=== PATIENT | male | born 1940 | race Caucasian/White ===

== ENCOUNTER 2021-05-18 06:26 | Day surgery (SDC) | payer MEDICARE ==
[2021-05-18] MEDS ORDERED: Bupivacaine 0.5% 50 ML MDV ONE (06:54)
[2021-05-18] MEDS ORDERED: Lidocaine 1% with EPINEPHrine 1:100,000 50 ML MDV ONE (06:55)
[2021-05-18] MEDS ORDERED: Meropenem 500 MG SDV ONE (06:55)
[2021-05-18] MEDS ORDERED: Acetaminophen 500 MG Tab PO ONE (07:00)
[2021-05-18] MEDS ORDERED: fentaNYL 250 MCG/5 ML SDV ONE (07:09)
[2021-05-18] MEDS ORDERED: Rocuronium 50 MG/5 ML Vial ONE (07:10)
[2021-05-18] MEDS ORDERED: Neostigmine Methylsulfate 1 MG/ML 5 ML Syringe ONE (07:10)
[2021-05-18] MEDS ORDERED: Ondansetron 4 MG/2 ML SDV ONE (07:10)
[2021-05-18] MEDS ORDERED: Dexamethasone 4 MG/ML SDV ONE (07:10)
[2021-05-18] MEDS: Dextrose 5%-Lactated Ringers 1,000 ML IV SCH ×2 (07:10→18:56)
[2021-05-18] MEDS ORDERED: Succinylcholine 200 MG/10 ML MDV ONE (07:10)
[2021-05-18] MEDS ORDERED: Glycopyrrolate 0.2 MG/ML 5 ML MDV ONE (07:10)
[2021-05-18] MEDS ORDERED: Propofol 200 MG/20 ML SDV ONE (07:10)
[2021-05-18] MEDS ORDERED: cefOXitin 2 GM in Sodium Chloride 0.9% 50 ML IV ONE (08:00)
[2021-05-18] MEDS ORDERED: Lidocaine 2% Jelly 10 ML Urojet ONE (08:27)
[2021-05-18] MEDS ORDERED: Lactated Ringers 1,000 ML ONE (09:26)
[2021-05-18] MEDS ORDERED: oxyCODONE 5 MG Tab PO PRN (11:27)
[2021-05-18] MEDS ORDERED: Ondansetron 4 MG/2 ML SDV IVPUSH PRN (11:30)
[2021-05-18] MEDS: ceFAZolin 2 GM in Premix Bag 1 BAG IV SCH ×2 (13:42→22:31)
[2021-05-18] MEDS ORDERED: Doxazosin 4 MG Tab PO SCH (21:00)
[2021-05-19] MEDS: Dextrose 5%-Lactated Ringers 1,000 ML IV SCH (04:58)
[2021-05-19] MEDS: ceFAZolin 2 GM in Premix Bag 1 BAG IV SCH (05:08)
[2021-05-19] MEDS ORDERED: Acetaminophen/HYDROcodone 325-5 MG Tab PO PRN (06:50)
[2021-05-19] MEDS ORDERED: Magnesium Hydroxide 400 MG/5 ML Susp 30 ML Cup PO PRN ×2 (06:51→09:18)
[2021-05-19] MEDS ORDERED: Lisinopril 20 MG Tab PO SCH (09:00)
[2021-05-19] MEDS ORDERED: Metoprolol Succinate 50 MG Tab.ER PO SCH (09:00)
[2021-05-19] MEDS ORDERED: Hydrochlorothiazide 25 MG Tab PO SCH (09:00)
[2021-05-19] MEDS ORDERED: amLODIPine 5 MG Tab PO SCH (09:00)
--- NOTE | 2021-05-20 08:46 | DISCH ---
ADMISSION DIAGNOSIS: Right inguinal hernia. DISCHARGE DIAGNOSES: Right inguinal exploration. 1. Repair of incarcerated incisional hernia with mesh (mesh plug). 2. Repair of incarcerated inguinal hernia with mesh (extra long plug). 3. Excision of intraperitoneal nodule extending into inguinal canal. 4. Excision of portion of right ilioinguinal nerve. POSTOPERATIVE DIAGNOSES: 1. Incarcerated incisional hernia. 2. Incarcerated indirect right inguinal hernia. 3. Right ilioinguinal nerve scar entrapment. 4. Prolapsed intraperitoneal mass into scrotum (7 cm). Date of procedure: 05/18/2021. HISTORY: Vinicius Hong had incarcerated incisional hernia of right inguinal area. After preoperative evaluation, discussion of possible risks and possible complications, he wished to proceed with surgical procedure. HOSPITAL COURSE: Vinicius had his surgery on 05/18/2021. He had no complications. He was up ambulating. Pain was controlled. His oral intake and output adequate. He did not have a bowel movement, but was passing flatus, and vital signs were stable. He was able to be discharged to home. PHYSICAL EXAMINATION: GENERAL: Vinicius Hong is a pleasant 80-year-old male. He is alert and orientated. VITAL SIGNS: Height 5 feet 8 inches, weight is 191 pounds, BMI is 29. TPR is 97.3, 70, 16. Blood pressure 145/70. HEENT: Negative. NECK: Supple. HEART: Regular rate and rhythm. LUNGS: Clear. ABDOMEN: Has his scrotal support on and abdominal binder is intact. EXTREMITIES: Without peripheral edema. DISPOSITION: Discharged to home. CONDITION: Stable and improving. FOLLOWUP APPOINTMENT: With Randell Abad MD, on 05/23/2021 at 10:15 a.m. HOME PRESCRIPTION: Hydrocodone-acetaminophen 5/325 mg one every 4 hours p.r.n. pain, #12; milk of magnesia 30 mL, take one daily p.r.n. constipation, two were sent home with patient. He is to hold Pradaxa 150 mg, which he takes oral daily until 05/21/2021. He may resume all his other medications including lisinopril 40 mg daily; hydrochlorothiazide 25 mg daily; amlodipine, Norvasc 10 mg daily; Zocor 20 mg daily; multivitamin 1 tablet daily; metoprolol tartrate, Lopressor 100 mg p.o. daily; Cardura 2 mg p.o. daily. DIET: Usual diet as tolerated. Drink 8 to 10 glasses of water a day. ACTIVITY: No lifting greater than 10 pounds for 6 weeks. Walk short distances in your home about 6 times a day if tolerated. On driving, do not drive for 1 week if possible. May shower, keep operative site clean and dry. Wear scrotal support and abdominal binder for 2 weeks. Notify provider if any fever, increased pain, swelling, redness, drainage, nausea, vomiting. Use incentive spirometer 10 times every hour while awake. /[id number]
--- NOTE | 2021-05-21 13:49 | OR ---
DATE OF PROCEDURE: 05/18/2021 SURGEON: Randell Abad MD PREOPERATIVE DIAGNOSIS: Incarcerated incisional and/or inguinal hernia. POSTOPERATIVE DIAGNOSES: 1. Difficult urethral catheterization secondary to urethral stricture. 2. Incarcerated incisional hernia. 3. Incarcerated indirect right inguinal hernia. 4. Right ilioinguinal nerve at risk for scar entrapment. 5. Prolapsed intraperitoneal mass into the scrotum. PROCEDURES PERFORMED: 1. Placement of 8-Indonesian Ruiz catheter over the area of urethral stricture (34562). 2. Right inguinal exploration with: a. Repair of incarcerated incisional hernia with mesh (34952, 27344). b. Repair of incarcerated inguinal hernia with mesh (99845). c. Excision of intraperitoneal mass prolapsing into inguinal canal (06455). d. Excision of portion of right ilioinguinal nerve (42259). ANESTHESIA: General. ADMINISTRATIVE SUPPORT SPECIALIST: Kelsea Hurst PA-C INDICATIONS FOR PROCEDURE: This is an 80-year-old presenting with a large right inguinal hernia. He has an obvious mass of probable small bowel within the hernia. When he stands up, this is roughly the size of a baseball. His lower abdominal history is complicated by a lower midline incision to the pubic bone used for prostatectomy followed by subsequent radiation treatment. It would appear that the patient has a large right inguinal hernia and may very well have a component of incisional hernia medially as well. Plan is to proceed with a right inguinal exploration with repair of the hernias as indicated with mesh plug technique. Laparoscopic approach in this case I think would be somewhat problematic in terms of scarring and loss of adequate tissue planes related to the previous surgeries and radiation treatment. Potential risks of the procedure including bleeding, infection, injury to underlying viscera, problems with hernia recurring, chronic pain resulting from repair due to nerve entrapment and/or instability of inguinal floor were all reviewed, and the patient wishes to proceed. DESCRIPTION OF PROCEDURE: The patient was taken to the operating room and placed in a supine position. Initially, the Ruiz catheter was attempted to be placed per nursing. This was initially unsuccessful. Eventually, using Uro-Jet, an 8-Indonesian Ruiz catheter was able to be placed with good flow present. The inflation of the balloon catheter was untoward pressure. Of note, intraperitoneally, there was enough scarring around the urinary bladder that one could not palpate the balloon within the bladder later in case, and the catheter was removed at the end of the procedure. The abdomen and groin areas were then prepped and draped, and a standard right inguinal incision was made and carried down through the skin and subcutaneous tissue and the external oblique aponeurosis. Of note, secondary to radiation treatment, the external oblique aponeurosis and conjoined tendon structures were left to a large extent fused, but subsequently able to be dissected free. After considerable dissection, it became evident that the patient had a large indirect inguinal hernia which contained a large amount of bowel present within it. This extended down to the upper aspect of the testicle. After that had been dissected free and a portion of the sac excised and ligation performed with a 3-0 Vicryl stitch, the patient was also noted to have a smaller incarcerated incisional hernia coming through the separate opening off the midline. This contained some preperitoneal fat within it which was subsequently reduced as well. During the course of the dissection, what appeared to be a portion of the ilioinguinal nerve could be identified, and this was divided and excised out to the lateral aspect of the incision. The iliohypogastric nerve could not be identified, nor could the genital branch of genitofemoral nerve during the course of dissection due to the distortion related to the radiation treatment. The cord structures were mobilized upward. Then, the hernias were repaired. Medially, the incisional hernia was repaired with a medium mesh plug. This was placed into the defect and underneath the conjoined tendon medially superiorly and then fixed to the Joel ligament with titanium tacking screws. An extra large mesh plug was placed. This was affixed medially with titanium tacking screw. Otherwise, it was too lateral for fixation of the bony structure and was fixed to underside of the conjoined tendon medially, superiorly, and laterally, and then to the shelving portion of the inguinal ligament medially, all these sutured with 2-0 Vicryl horizontal mattress sutures. During the course of the dissection, an elongated mass containing a single firm mass within it measuring around 7 cm was prolapsing from the intraperitoneal location into the course leading down towards the scrotum. This measured around 7 cm in total length, and this was excised and sent for histologic evaluation. At this point, the conjoined tendon was affixed to the shelving portion of the inguinal ligament beginning medially and then extending across laterally with a running 0 Vicryl stitch. This was taken out to the point of the internal ring where it was then tied. There was additional patulousness of the inguinal floor lateral to the internal ring which was similarly sutured between what would be the conjoined tendon lateral to the internal ring to the shelving portion of the inguinal ligament lateral to the internal ring as well taken with 0 Vicryl stitch. The flat portion of the mesh plug system would lay across the inguinal floor without redundancy and sutured lateral to the internal ring with some 3-0 Vicryl stitch and then fixed to pubic tubercle with a titanium tacking screw. The cord structures at this point appeared to be undamaged. There did appear to be some degree of venous hypertension within the cord structures, but a Jory clamp could be placed alongside the cord structures at the internal ring, indicating it did not appear to be overly tightened. Over this, the external oblique aponeurosis approximated and the subcutaneous tissue approximated with some 3-0 Vicryl stitch and the skin with 4-0 Vicryl subcuticular stitch and surgical glue. Prior to closure, ilioinguinal nerve block was placed along with a field block with 0.5% Marcaine mixed with lidocaine, and the patient was taken to the recovery room in satisfactory condition. Physician facilities maintenance assistant, Kelsea Hurst, played an essential role in assisting in this case, helping to position the patient, retract structures as needed, as well as suturing and cutting sutures when indicated. Her presence improved the patient's safety and decreased the operative time. Randell Abad MD /[id number]
== END 2021-05-19 09:30 | disposition home or self-care (01) ==
LOC: JP.SDS 06:26 → JP.MS 10:15 → JP.SDS 05-19 09:30
PROVIDERS: ATTEND Surgery
DX: K43.0 Incisional hernia with obstruction, without gangrene (principal); K40.30 Unilateral inguinal hernia, with obstruction, without gangrene, not specified as recurrent; N35.919 Unspecified urethral stricture, male, unspecified site; R19.00 Intra-abdominal and pelvic swelling, mass and lump, unspecified site; I48.20 Chronic atrial fibrillation, unspecified; I10 Essential (primary) hypertension; E78.5 Hyperlipidemia, unspecified; Z85.46 Personal history of malignant neoplasm of prostate; Z79.01 Long term (current) use of anticoagulants; Z01.812 Encounter for preprocedural laboratory examination; Z86.16 Personal history of COVID-19; Z87.891 Personal history of nicotine dependence; Z20.822 Contact with and (suspected) exposure to COVID-19
CPT/HCPCS: 36415; 49204; 49507; 49561; 49568; 83735; 84100; 94762; A9270; C1713; C1781; J0330; J0690; J0694; J1100; J2020; J2185; J2405; J2704; J2710; J3010; J3490; J7120; J7121; U0002